=== PATIENT | female | born 1985 | race Caucasian/White ===

== ENCOUNTER 2017-12-23 19:23 | Emergency (ER) | payer MEDICAID ==
[~2017-12-23] VITALS: Ht 154.9 cm; Wt 54.9 kg
[2017-12-23 19:40] VITALS: Ht 154.9 cm; Wt 54.9 kg
[2017-12-23 20:42] LABS: BASOPHIL % 0.3 % (0-2); PLATELET COUNT 181 x10^3mcL (130-400); RED CELL DISTRIBUTION WIDTH 13.2 % (11.5-14.5)
[2017-12-24 01:20] VITALS: BP 125/77
== END 2017-12-24 01:20 | disposition home or self-care (01) ==
LOC: ED 19:23
PROVIDERS: Emergency Medicine
DX: N92.0 Excessive and frequent menstruation with regular cycle (principal); N93.8 Other specified abnormal uterine and vaginal bleeding
CPT/HCPCS: J7030